=== PATIENT | female | born 1945 ===

== ENCOUNTER → 2017-01-30 | Outpatient (CLI) | payer OTHER | END | disposition home or self-care (01) | LOC: C.LABMFLN 09:21 | PROVIDERS: ATTEND Family Medicine | DX: Z11.59 Encounter for screening for other viral diseases (principal) ==

== ENCOUNTER → 2017-08-06 | Outpatient (CLI) | payer OTHER ==
[2017-08-06 13:26] LABS: BASO % 0.7 %; BASO ABS # 0.05 K/uL (0-0.2); COMPLETE YES; EOS % 2.1 %; HEMATOCRIT 40.9 % (37-47); IG% 0.1 %; LYMPH % 25.1 %; LYMPH ABS # 1.69 K/uL (1.2-3.4); MEAN CELL VOLUME 92.1 fL (80-100); MEAN CORPUSCULAR HEMOGLOBIN 30.6 pg (25-34); MEAN CORPUSCULAR HGB CONC 33.3 g/dl (32-36); MEAN PLATELET VOLUME 11.3 fL (7.4-10.4); MONO % 9.4 %; NEUT % 62.6 %; PLATELET COUNT 248 K/uL (130-400); RED BLOOD COUNT 4.44 M/uL (4.2-5.4); WHITE BLOOD COUNT 6.73 K/uL (4.8-10.8)
[2017-08-06 14:15] LABS: ALT/SGPT 24 U/L (12-78); AST/SGOT 21 U/L (15-37); BLOOD UREA NITROGEN 19 mg/dl (7-18); BUN/CREATININE RATIO 24.9 (10-20); CALCIUM 9.2 mg/dl (8.5-10.1); CARBON DIOXIDE 31 mmol/L (21-32); CHLORIDE 104 mmol/L (98-107); CREATININE 0.76 mg/dl (0.60-1.20); GLUCOSE 89 mg/dl (70-99); POTASSIUM 3.8 mmol/L (3.5-5.1); SODIUM 137 mmol/L (136-145)
[2017-08-06 14:18] LABS: ALB/GLOB RATIO 1.1 (0.9-2); ALKALINE PHOSPHATASE 57 U/L (45-117); CHOLESTEROL 174 mg/dl (0-200); CHOLESTEROL/HDL RATIO 1.8; HDL CHOLESTEROL 99 mg/dl; LDL CHOLESTEROL CALCULATED 62 mg/dl; TRIGLYCERIDES 66 mg/dl (0-150); VERY LOW DENSITY LIPOPROT CALC 13 mg/dl
== END | disposition home or self-care (01) ==
LOC: C.LABMFLN 08:50
PROVIDERS: ATTEND Family Medicine
DX: I10 Essential (primary) hypertension (principal)